=== PATIENT | female | born 1985 | race Asian ===

== ENCOUNTER 2019-01-01 07:48 | Emergency (ER) | payer OTHER ==
[~2019-01-01] VITALS: Ht 160 cm; Wt 92.1 kg
[2019-01-01 08:08] VITALS: TEMP 98.1
[2019-01-01 08:39] LABS: PLATELET COUNT 226 K/uL (152-353)
[2019-01-01 08:48] LABS: POTASSIUM 3.7 mmol/L (3.6-5.2)
[2019-01-01 12:25] VITALS: BP 140/82
== END 2019-01-01 12:27 | disposition home or self-care (01) ==
LOC: ED 07:48
PROVIDERS: Hospitalist
DX: O21.9 Vomiting of pregnancy, unspecified (principal); Z3A.08 8 weeks gestation of pregnancy
CPT/HCPCS: 36415; 80053; 81000; 82150; 83690; 84702; 85027; 96360; 96375; 99284; J2405

== ENCOUNTER 2020-05-17 10:36 | Outpatient (CLI) | payer OTHER | END 2020-05-17 19:13 | disposition home or self-care (01) | LOC: RAD 10:36 | PROVIDERS: ATTEND Nurse Practitioner Family | DX: J06.9 Acute upper respiratory infection, unspecified (principal); R05 Cough; R50.9 Fever, unspecified; Z20.828 Contact with and (suspected) exposure to other viral communicable diseases ==

== ENCOUNTER 2020-12-05 17:43 | Emergency (ER) | payer OTHER ==
[~2020-12-05] VITALS: Ht 160 cm; Wt 92.1 kg
[2020-12-05 17:48] VITALS: BP 180/120; TEMP 98.1
[2020-12-05] MEDS ORDERED: MONTELUKAST SOD10 MG PO (17:57)
[2020-12-05] MEDS ORDERED: Z-PAK PO (17:58)
[2020-12-05] MEDS ORDERED: CLARITIN10 M1 PO (17:59)
== END 2020-12-05 18:35 | disposition home or self-care (01) ==
LOC: ED 17:43
DX: J06.9 Acute upper respiratory infection, unspecified (principal); R11.10 Vomiting, unspecified; J32.8 Other chronic sinusitis; I10 Essential (primary) hypertension
CPT/HCPCS: 96372; 99283; J1100

== ENCOUNTER 2021-09-22 06:54 | Emergency (ER) | payer OTHER ==
[~2021-09-22] VITALS: Ht 160 cm; Wt 103.4 kg
[~2021-09-22 06:54] MED LIST: CLARITIN10 M1 PO; MONTELUKAST SOD10 MG PO; Z-PAK PO
[2021-09-22 07:40] LABS: PLATELET COUNT 213 K/uL (152-353)
[2021-09-22 07:55] LABS: POTASSIUM 3.2 mmol/L (3.6-5.2)
[2021-09-22 08:45] VITALS: BP 149/88; TEMP 97.9
== END 2021-09-22 08:45 | disposition home or self-care (01) ==
LOC: ED 06:54
PROVIDERS: Emergency Medicine
DX: J02.0 Streptococcal pharyngitis (principal); I10 Essential (primary) hypertension; E87.6 Hypokalemia; H61.21 Impacted cerumen, right ear; Z20.822 Contact with and (suspected) exposure to COVID-19; F17.210 Nicotine dependence, cigarettes, uncomplicated
CPT/HCPCS: 80048; 81000; 85027; 87635; 87651; 96372; 99283; J0696; J1885; U0003

== ENCOUNTER 2021-09-22 15:07 | Emergency (ER) | payer OTHER ==
[~2021-09-22] VITALS: Ht 160 cm; Wt 103.4 kg
[2021-09-22 16:05] VITALS: BP 165/108; TEMP 99.6
== END 2021-09-22 16:08 | disposition home or self-care (01) ==
LOC: ED 15:07
DX: J02.0 Streptococcal pharyngitis (principal)
CPT/HCPCS: 96372; 99282; J1100